=== PATIENT | male | born 1955 | race Caucasian/White ===

== ENCOUNTER 2017-04-20 11:18 | Emergency (ER) | payer BC ==
--- NOTE | 2017-04-20 12:57 | ED ---
Lower Extremity - HPI Summary HPI Summary: Patient presents to the ED with CC of right knee pain. He states he felt some knee pain last week and ignored it. Today, as he was walking he felt a "pop" to the lateral side of the right knee and notes a 8/10 pain to the lateral knee with slight swelling. At rest, denies pain, however upon standing he is having pain. Denies any injury to the knee previously. He has been able to walk, but states he has been favoring the medial side. Denies numbness, tingling. Denies temperature or color changes. +DVT in the left leg several months ago and currently taking eliquis. - History of Current Complaint Chief Complaint: EDExtremityLower Stated Complaint: RIGHT KNEE PAIN Time Seen by Provider: 04/20/17 11:53 Hx Obtained From: Patient Mechanism Of Injury: Twisted Onset of Pain: Immediate Onset/Duration: Hours Severity Initially: Mild Severity Currently: Mild Pain Intensity: 6 Pain Scale Used: 0-10 Numeric Timing: Constant Location: Is Discrete @ - right lateral knee Associated Signs And Symptoms: Positive: Negative Aggravating Factor(s): Standing, Ambulation Alleviating Factor(s): Rest Able to Bear Weight: No - Risk Factors Gout Risk Factors: Negative DVT Risk Factors: Negative Septic Arthritis Risk Factor: Negative - Allergies/Home Medications Allergies/Adverse Reactions: Allergies Allergy/AdvReac Type Severity Reaction Status Date / Time No Known Allergies Allergy Verified 04/20/17 11:56 PMH/Surg Hx/FS Hx/Imm Hx Previously Healthy: Yes - Immunization History Hx Pertussis Vaccination: No Immunizations Up to Date: Unable to Obtain/Confirm Infectious Disease History: No Infectious Disease History: Denies: Traveled Outside the [place] in Last 30 Days - Social History Occupation: Employed Full-time Lives: With Family Alcohol Use: Rare Hx Substance Use: No Substance Use Type: Reports: None Hx Tobacco Use: No Smoking Status (MU): Never Smoked Tobacco Review of Systems Constitutional: Negative Negative: Fever, Chills, Fatigue Eyes: Negative Cardiovascular: Negative Respiratory: Negative Genitourinary: Negative Positive: no symptoms reported, see HPI Positive: Arthralgia Skin: Negative Psychological: Normal All Other Systems Reviewed And Are Negative: Yes Physical Exam - Summary Physical Exam Summary: Thorough physical exam was performed, focusing on knee special tests. Pain on palpation over lateral aspect and superior aspect of knee with mild amount of effusion. Due to patient pain around injury, physical exam was limited. Valgus and varus force without pain. No posterior sag sign, -posterior drawer test, - anterior drawer test. Quadriceps active test negative. Mcmurrys test not performed d/t patients instability. No laxity in the joint noted. No temperature change or pallor noted bilaterally. No ecchymosis noted over knee. No lesion or disruption of skin is seen. Able to bear weight. Pulses intact bilaterally. Triage Information Reviewed: Yes Vital Signs On Initial Exam: Initial Vitals Temp Pulse Resp BP Pulse Ox 99.1 F 69 16 166/100 97 04/20/17 11:46 04/20/17 11:46 04/20/17 11:46 04/20/17 11:46 04/20/17 11:46 Vital Signs Reviewed: Yes Appearance: Positive: Well-Appearing, Well-Nourished Skin: Positive: Skin Color Reflects Adequate Perfusion Head/Face: Positive: Normal Head/Face Inspection Eyes: Positive: EOMI, MICHELLE, Conjunctiva Clear Respiratory/Lung Sounds: Positive: Clear to Auscultation, Breath Sounds Present Cardiovascular: Positive: RRR, Pulses are Symmetrical in both Upper and Lower Extremities Musculoskeletal: Positive: Other - see above Neurological: Positive: Speech Normal Psychiatric: Positive: Affect/Mood Appropriate Diagnostics - Vital Signs Vital Signs Temp Pulse Resp BP Pulse Ox 04/20/17 11:46 99.1 F 69 16 166/100 97 - Laboratory Lab Statement: Any lab studies that have been ordered have been reviewed, and results considered in the medical decision making process. Lower Extremity Course/Dx - Course Course Of Treatment: Patient evaluated for knee pain after feeling a "pop" and experiencing pain in the right lateral knee. He is able to walk, but is favoring the medial side. Denies previous injury. Patient sent to imaging. Xray negative for fracture or other acute findings. Soft tissue swelling noted over the knee. Knee immobilizer given. Crutches given. Patient given orthopedic follow up in 5-7 days. Encouraged Ibuprofen 600mg three times daily with meals for pain. Return precautions given. Educated patient regarding knee injuries and healing time and the possibility of further evaluation and imaging as orthopedist sees fit. I have discussed how we are unable to tell if this is a ligamentous injury without further imaging. He agrees to follow up with ortho if symptoms persist or fail to improve. - Diagnoses Provider Diagnoses: Knee pain Discharge - Discharge Plan Condition: Stable Disposition: HOME Patient Education Materials: Knee Pain (ED) Referrals: Arianna Oh MD [Medical Doctor] - Cory Chaudhary MD [Primary Care Provider] - Additional Instructions: As discussed, we are unable to tell if there is a ligamentous injury. If symptoms persist, I recommend following up with ortho. I have given you a referral Try to elevate and ice as much as possible If the knee feels lax, please use the immobilizer and crutches.
--- NOTE | 2017-04-20 14:00 | RAD ---
Indication: Right knee pain. 4 views of the right knee demonstrates joint effusion. No fracture is identified. Fragmentation of the tibial tuberosity is noted. IMPRESSION: Joint effusion. No fracture is noted. Evidence of osteochondrosis of the tibial tuberosity.
[2017-05-03 12:00] VITALS: BP 0/0
== END 2017-05-05 13:50 | disposition home or self-care (01) ==
LOC: ED 11:18
DX: M25.561 Pain in right knee (principal); M25.461 Effusion, right knee
CPT/HCPCS: 99282

== ENCOUNTER 2023-10-12 18:32 | Inpatient (IN) ==
[2023-10-12] MEDS ORDERED: Cefepime 2 GM in NS 0.9% 50 ML 50 ML IVPB ONE (19:25)
[2023-10-12 20:11] LABS: ABS Basophils 0.1 10^3/uL (0.0-0.1); ABS Eosinophils 0.1 10^3/uL (0.0-0.5); ABS Lymphocytes 1.1 10^3/uL (1.0-4.8); ABS Neutrophils 11.2 10^3/uL (1.5-7.6); ABS Nucleated RBC 0.01 10^3/ul; Eosinophil % 0.7 %; Hematocrit 43.9 % (38-53); Hemoglobin 14.6 g/dL (13.2-16.3); Mean Corpuscular Hgb Conc 33.3 g/dL (31-36); Mean Corpuscular Volume 84.2 fL (80-97); Mean Platelet Volume 7.9 fL (7.5-11.2); Nucleated Red Blood Cells % 0.1 %/100WBC (0.0-0.8); Platelet Count 227 10^3/uL (150-450); Red Blood Count 5.21 10^6/uL (4.06-5.63); Red Cell Distribution Width 14.5 % (12-17); White Blood Count 13.4 10^3/uL (3.6-10.2)
[2023-10-12] MEDS: Vancomycin 1,750 MG in NS 0.9% 500 ml BAG 500 ML IVPB ONE (20:19)
[2023-10-12] MEDS: metroNIDAZOLE IV 500 MG/100ML 500 MG/100 ML BAG IVPB ONE (20:22)
[2023-10-12 21:04] LABS: Albumin 3.4 g/dL (3.2-5.2); Albumin/Globulin Ratio 1.2 (1-3); C Reactive Protein 206.33 mg/L (<8.01); Calcium 8.8 mg/dL (8.6-10.3); Creatinine, Serum 0.88 mg/dL (0.67-1.17); Globulin 2.9 g/dL (2-4); Potassium 3.7 mmol/L (3.5-5.0); Total Bilirubin 1.7 mg/dL (0.2-1.0); Total Protein 6.3 g/dL (6.4-8.9); eGFR CKD-EPI 94.2 (>60)
[2023-10-12] MEDS: Cefepime 2 GM IV - ED ONCE IV ONE (21:45)
[2023-10-12] MEDS ORDERED: Dextrose 50% Syringe 50 ml 25 GM/50 ML SYRINGE IV PUSH PRN (23:32)
[2023-10-12] MEDS ORDERED: Zosyn per Pharmacy NOTE FOLLOW UP SCH (23:45)
[2023-10-13] MEDS: Heparin 5000 UNITS/ML 1 mL VIAL SUBCUT SCH (00:32)
[2023-10-13 01:04] LABS: Activated Partial Thrombo Time 28.9 seconds (26.0-38.0); INR 1.39 (0.83-1.13)
[2023-10-13 01:24] LABS: Creatinine, Serum 0.8 mg/dL (0.67-1.17)
[2023-10-13 01:56] LABS: Urine Appearance Clear; Urine Bilirubin Negative (Negative); Urine Blood Negative (Negative); Urine Color Light-Yellow; Urine Glucose 4+ (>=1000 mg/dL) (Negative); Urine Ketones Trace (Negative); Urine Nitrite Negative (Negative); Urine Protein Trace (Negative); Urine Specific Gravity 1.039 (1.002-1.030); Urine Urobilinogen Negative (Negative); Urine pH 5.5 (5.0-8.0)
[2023-10-13] MEDS: NS 0.9% 1000 ml BAG 1,000 ML IV SCH (02:51)
[2023-10-13] MEDS: Piperacillin/Tazobac 3.375 BAG 3.375 GM/100 ML BAG IV ONE (08:00)
[2023-10-13] MEDS ORDERED: Vancomycin 1,500 MG in NS 0.9% 250 ml 250 ML IVPB SCH (08:00)
[2023-10-13] MEDS ORDERED: Vancomycin per Pharmacy 1 EA NOTE FOLLOW UP SCH (08:00)
[2023-10-13] MEDS ORDERED: Piperacillin/Tazobac 3.375 BAG 3.375 GM/100 ML BAG IV ONE (08:00)
[2023-10-13 08:39] LABS: ABS Basophils 0.1 10^3/uL (0.0-0.1); ABS Eosinophils 0.1 10^3/uL (0.0-0.5); ABS Lymphocytes 1.1 10^3/uL (1.0-4.8); ABS Monocytes 0.9 10^3/uL (0.0-1.1); ABS Neutrophils 9.2 10^3/uL (1.5-7.6); ABS Nucleated RBC 0.01 10^3/ul; Eosinophil % 0.5 %; Hematocrit 44.8 % (38-53); Hemoglobin 15.2 g/dL (13.2-16.3); Lymphocyte % 9.9 %; Mean Corpuscular Hemoglobin 28.8 pg (27-33); Mean Corpuscular Hgb Conc 33.9 g/dL (31-36); Mean Corpuscular Volume 85.1 fL (80-97); Mean Platelet Volume 7.8 fL (7.5-11.2); Nucleated Red Blood Cells % 0.1 %/100WBC (0.0-0.8); Platelet Count 211 10^3/uL (150-450); Red Blood Count 5.27 10^6/uL (4.06-5.63); Red Cell Distribution Width 14.3 % (12-17); White Blood Count 11.4 10^3/uL (3.6-10.2)
[2023-10-13 08:45] LABS: INR 1.27 (0.83-1.13)
[2023-10-13] MEDS: Vancomycin 1,500 MG in NS 0.9% 250 ml 250 ML IVPB SCH (08:59)
[2023-10-13 09:05] LABS: Calcium 8.4 mg/dL (8.6-10.3); Creatinine, Serum 0.73 mg/dL (0.67-1.17); Magnesium 1.7 mg/dL (1.9-2.7); eGFR CKD-EPI 99.7 (>60)
[2023-10-13] MEDS: Magnesium Sulfate 2 gm BAG 2 GM/50 ML BAG IVPB ONE (11:04)
[2023-10-13] MEDS: ZOSYN 3.375 GM Q8H per EXTENDED INFUSION IV SCH (11:44)
[2023-10-14 08:09] LABS: ABS Eosinophils 0.2 10^3/uL (0.0-0.5); ABS Lymphocytes 1.5 10^3/uL (1.0-4.8); ABS Monocytes 1.1 10^3/uL (0.0-1.1); ABS Neutrophils 6.5 10^3/uL (1.5-7.6); Hematocrit 42.7 % (38-53); Hemoglobin 14.2 g/dL (13.2-16.3); Lymphocyte % 16.2 %; Mean Corpuscular Hemoglobin 28.4 pg (27-33); Mean Corpuscular Hgb Conc 33.3 g/dL (31-36); Mean Corpuscular Volume 85.2 fL (80-97); Mean Platelet Volume 7.8 fL (7.5-11.2); Platelet Count 206 10^3/uL (150-450); Red Blood Count 5.01 10^6/uL (4.06-5.63); Red Cell Distribution Width 14.4 % (12-17); White Blood Count 9.3 10^3/uL (3.6-10.2)
[2023-10-14 09:22] LABS: Calcium 7.9 mg/dL (8.6-10.3); Creatinine, Serum 0.8 mg/dL (0.67-1.17); Magnesium 2.1 mg/dL (1.9-2.7); Potassium 4.2 mmol/L (3.5-5.0)
[2023-10-14] MEDS: Vancomycin Trough Check NOTE FOLLOW UP ONE (10:30)
[2023-10-14] MEDS: cefTRIAXone 2 gm/50 mL D5W 2 GM/50 ML BAG IV SCH (13:45)
[2023-10-14] MEDS: metroNIDAZOLE IV 500 MG/100ML 500 MG/100 ML BAG IVPB SCH (14:22)
[2023-10-14] MEDS ORDERED: fentaNYL 100 mcg/2 ml 50 MCG/ML VIAL ONE (17:14)
[2023-10-14] MEDS ORDERED: Midazolam 2 mg/2 ml VIAL 1 mg/ml 2 ml VIAL (2 mg) ONE (17:14)
[2023-10-14] MEDS ORDERED: Propofol 10 MG/ML 20 ML BTL ONE (17:14)
[2023-10-14] MEDS ORDERED: Ondansetron 4 mg VIAL 2 MG/ML 2 ml VIAL ONE (17:14)
[2023-10-14] MEDS ORDERED: Lidocaine 2% PF 5 ML VIAL ONE (17:15)
[2023-10-14] MEDS ORDERED: ceFAZolin VIAL VIAL ONE (17:16)
[2023-10-14] MEDS ORDERED: fentaNYL 100 mcg/2 ml 50 MCG/ML VIAL IV PRN (18:22)
[2023-10-14] MEDS ORDERED: Naloxone 0.4 mg VIAL 0.4 mg/ml 1 ml VIAL IV PRN (18:22)
[2023-10-14] MEDS ORDERED: Metoclopramide 5 MG/ML VIAL (10 mg) IV PRN (18:22)
[2023-10-14] MEDS ORDERED: Ondansetron 4 mg VIAL 2 MG/ML 2 ml VIAL IV PRN (18:22)
[2023-10-14] MEDS ORDERED: NS 0.45% 1000 ml BAG 1,000 ML IV SCH (19:00)
[2023-10-14] MEDS: Lactated Ringers 1000 ml BAG 1,000 ML IV SCH (21:44)
[2023-10-15] MEDS: Sulfur Hexaflouride MICROSPHR 25 MG VIAL IV ONE (01:55)
[2023-10-15] MEDS: Acetaminophen IV 1 GM/100ML 1,000 MG/100 ML BAG IV ONE (01:56)
[2023-10-15] MEDS: Buffered Lidocaine 1% SYRIN 1 ml INTRADERM ONE (01:56)
[2023-10-15] MEDS: Scopolamine 1 mg/72hr PATCH TRANSDERM ONE (01:57)
[2023-10-15 06:25] LABS: ABS Eosinophils 0.2 10^3/uL (0.0-0.5); ABS Lymphocytes 1.4 10^3/uL (1.0-4.8); ABS Monocytes 0.8 10^3/uL (0.0-1.1); ABS Neutrophils 5.7 10^3/uL (1.5-7.6); Eosinophil % 2.6 %; Hematocrit 41.1 % (38-53); Hemoglobin 13.7 g/dL (13.2-16.3); Lymphocyte % 17.4 %; Mean Corpuscular Hemoglobin 28.3 pg (27-33); Mean Corpuscular Hgb Conc 33.3 g/dL (31-36); Mean Corpuscular Volume 84.9 fL (80-97); Mean Platelet Volume 7.5 fL (7.5-11.2); Platelet Count 226 10^3/uL (150-450); Red Blood Count 4.84 10^6/uL (4.06-5.63); Red Cell Distribution Width 14.2 % (12-17); White Blood Count 8.2 10^3/uL (3.6-10.2)
[2023-10-15 06:46] LABS: Calcium 8.2 mg/dL (8.6-10.3); Creatinine, Serum 0.8 mg/dL (0.67-1.17); Magnesium 1.9 mg/dL (1.9-2.7); Potassium 4.5 mmol/L (3.5-5.0)
[2023-10-16 06:17] LABS: ABS Eosinophils 0.3 10^3/uL (0.0-0.5); ABS Lymphocytes 1.8 10^3/uL (1.0-4.8); ABS Monocytes 0.7 10^3/uL (0.0-1.1); ABS Neutrophils 4.7 10^3/uL (1.5-7.6); ABS Nucleated RBC 0.01 10^3/ul; Eosinophil % 3.7 %; Hematocrit 41.3 % (38-53); Lymphocyte % 23.9 %; Mean Corpuscular Hemoglobin 28.8 pg (27-33); Mean Corpuscular Volume 84.6 fL (80-97); Mean Platelet Volume 7.9 fL (7.5-11.2); Nucleated Red Blood Cells % 0.1 %/100WBC (0.0-0.8); Platelet Count 231 10^3/uL (150-450); Red Blood Count 4.89 10^6/uL (4.06-5.63); Red Cell Distribution Width 14.3 % (12-17); White Blood Count 7.6 10^3/uL (3.6-10.2)
[2023-10-16 06:33] LABS: Calcium 8.4 mg/dL (8.6-10.3); Creatinine, Serum 0.7 mg/dL (0.67-1.17); Magnesium 1.8 mg/dL (1.9-2.7); Potassium 4.4 mmol/L (3.5-5.0)
[2023-10-16] MEDS: Magnesium Sulfate 2 gm BAG 2 GM/50 ML BAG IVPB ONE (09:09)
[2023-10-16 14:17] VITALS: BP 121/65
[2023-10-17] MEDS ORDERED: Vancomycin Trough Check NOTE FOLLOW UP ONE (07:30)
== END 2023-10-16 18:00 | disposition home or self-care (01) | DRG 710 ==
LOC: ED 18:32 → EDHOLD 18:32 → SSU 10-13 02:34 → SUATTDRO 10-14 13:40
PROVIDERS: ADMIT Student in an Organized Health Care Education/Training Program; ATTEND Internal Medicine